=== PATIENT | female | born 1950 | race Caucasian/White ===

== ENCOUNTER 2018-03-05 11:59 | Emergency (ER) | payer MEDICARE, OTHER ==
[~2018-03-05] VITALS: Ht 160 cm; Wt 53.0 kg
[~2018-03-05 11:59] MED LIST: ASPI-1159 PO; BENZ1TAB7 PO; DIVA500T51 PO; QUET300T2 PO; SIMV10TA6 PO; TRAZ-132 PO; ZOLP10TA6 PO
[2018-03-05] MEDS ORDERED: KETOROLAC 30MG/ML VIAL IV ONE (13:45)
[2018-03-05 14:19] LABS: CLARITY URINE TURBID (CLEAR); COLOR URINE YELLOW (YELLOW); KETONES URINE TRACE (NEGATIVE); LEUKOCYTE ESTERASE URINE 2+ (NEGATIVE); NITRITE URINE POSITIVE (NEGATIVE); OCCULT BLOOD URINE 1+ (NEGATIVE); PH URINE 6.5 (4.5-8.0); PROTEIN URINE 1+ (NEGATIVE)
[2018-03-05 15:25] LABS: HEMATOCRIT. 35.3 % (36.0-48.0); HEMOGLOBIN. 12.1 g/dL (12.0-16.0); MEAN CORPUSCULAR HEMOGLOBIN 35.8 pg (28.0-32.0); MEAN CORPUSCULAR VOLUME 103.8 fL (81.0-99.0); MEAN PLATELET VOLUME 8.2 fl (7.4-10.4); PLATELET 132 x1000/uL (130-400); RED CELL DISTRIBUTION WIDTH 12.6 % (11.6-14.6)
[2018-03-05 15:28] LABS: CHLORIDE 103 mEq/L (98-107)
[2018-03-05 16:21] LABS: PLATELET ESTIMATE NORMAL
[2018-03-05] MEDS ORDERED: CEFTRIAXONE 1 G PREMIX 50 ML IV ONE (17:00)
[2018-03-05] MEDS ORDERED: LIDOCAINE HCL 1% 20ML VIAL (Pyxis) INJ INFIL ONE (17:45)
[2018-03-05] MEDS ORDERED: CEFTRIAXONE SODIUM 1 G/VIAL IM ONE (17:45)
[2018-03-05 18:17] VITALS: BP 121/32
== END 2018-03-05 18:17 | disposition home or self-care (01) ==
LOC: ER 13:32
DX: R60.0 Localized edema (principal); N39.0 Urinary tract infection, site not specified; F20.9 Schizophrenia, unspecified; G40.909 Epilepsy, unspecified, not intractable, without status epilepticus; I51.9 Heart disease, unspecified; I45.10 Unspecified right bundle-branch block; R62.50 Unspecified lack of expected normal physiological development in childhood; Z90.11 Acquired absence of right breast and nipple
CPT/HCPCS: 36415; 71045; 80053; 80165; 81003; 83880; 84484; 85025; 87077; 87086; 87186; 93005; 93970; 96372; 99285; J0696; J3490; Z7610

== ENCOUNTER 2018-12-30 09:09 | Emergency (ER) | payer MEDICARE, OTHER ==
[~2018-12-30] VITALS: Ht 157.5 cm; Wt 80.0 kg
[~2018-12-30 09:09] MED LIST changes: -TRAZ-132 PO; +TRAZ-213 PO
[2018-12-30 10:35] LABS: HEMATOCRIT. 38.7 % (36.0-48.0); LYMPHOCYTES % 33.8 % (20.0-50.0); MEAN CORPUSCULAR HEMOGLOBIN 32.5 pg (28.0-32.0); MEAN CORPUSCULAR VOLUME 96.8 fL (81.0-99.0); MEAN PLATELET VOLUME 7.9 fl (7.4-10.4); MONOCYTES % 10.8 % (2.0-8.0); NEUTROPHILS % 52.4 % (40.0-76.0); PLATELET 180 x1000/uL (130-400); RED CELL DISTRIBUTION WIDTH 12.8 % (11.6-14.6)
[2018-12-30 10:38] LABS: CHLORIDE 106 mEq/L (98-107)
[2018-12-30 10:41] LABS: ETHANOL BLOOD < 10 mg/dL
[2018-12-30 10:42] LABS: *AMPHETAMINES SCREEN URINE NEGATIVE (NEGATIVE); *BARBITURATES SCREEN URINE NEGATIVE (NEGATIVE); CANNABINOID URINE SCREEN NEGATIVE (NEGATIVE); OPIATES URINE SCREEN NEGATIVE (NEGATIVE); PHENCYCLIDINE URINE SCREEN NEGATIVE (NEGATIVE)
[2018-12-30 10:43] LABS: *BENZODIAZEPINES SCREEN URINE NEGATIVE (NEGATIVE); *COCAINE SCREEN URINE NEGATIVE (NEGATIVE); METHADONE URINE SCREEN NEGATIVE (NEGATIVE)
[2018-12-30 14:40] VITALS: BP 137/65
== END 2018-12-30 14:40 | disposition home or self-care (01) ==
LOC: ER 09:09
DX: Z51.89 Encounter for other specified aftercare (principal); R94.31 Abnormal electrocardiogram [ECG] [EKG]; F20.9 Schizophrenia, unspecified; R56.9 Unspecified convulsions; I51.9 Heart disease, unspecified
CPT/HCPCS: 36415; 80305; 80307; 80320; 80329; 93005; 99284; G0480

== ENCOUNTER 2019-07-01 13:20 | Emergency (ER) | payer MEDICARE, OTHER ==
[~2019-07-01] VITALS: Ht 152.4 cm; Wt 60.0 kg
[~2019-07-01 13:20] MED LIST changes: -ASPI-1159 PO; +ASPI-1393 PO
[2019-07-01 13:38] VITALS: BP 98/79
[2019-07-01] MEDS ORDERED: BACITRACIN ZINC OINT UDPKT TOP ONE (14:15)
== END 2019-07-01 15:39 | disposition home or self-care (01) ==
LOC: ER 13:20
DX: S91.204A Unspecified open wound of right lesser toe(s) with damage to nail, initial encounter (principal); F20.9 Schizophrenia, unspecified; I51.9 Heart disease, unspecified; Z85.3 Personal history of malignant neoplasm of breast; Z90.10 Acquired absence of unspecified breast and nipple; Z91.81 History of falling; W22.8XXA Striking against or struck by other objects, initial encounter; Y93.E1 Activity, personal bathing and showering; Y92.012 Bathroom of single-family (private) house as the place of occurrence of the external cause
CPT/HCPCS: 73630; 99283

== ENCOUNTER 2019-09-08 15:51 | Emergency (ER) | payer MEDICARE, OTHER ==
[~2019-09-08] VITALS: Ht 160 cm; Wt 75.0 kg
[2019-09-08 23:49] LABS: CLARITY URINE TURBID (CLEAR); COLOR URINE RED (YELLOW); KETONES URINE NEGATIVE (NEGATIVE); LEUKOCYTE ESTERASE URINE 2+ (NEGATIVE); NITRITE URINE NEGATIVE (NEGATIVE); OCCULT BLOOD URINE 3+ (NEGATIVE); PROTEIN URINE 2+ (NEGATIVE); SPECIFIC GRAVITY URINE 1.019 (1.005-1.030); UROBILINOGEN URINE 0.2 E.U./dL (0.2-1.0)
[2019-09-08 23:55] LABS: CHLORIDE 98 mEq/L (98-107)
[2019-09-09 02:45] VITALS: BP 112/55
== END 2019-09-09 03:11 | disposition home or self-care (01) ==
LOC: ER 15:51
DX: R31.9 Hematuria, unspecified (principal); F20.9 Schizophrenia, unspecified; F79 Unspecified intellectual disabilities; Z79.82 Long term (current) use of aspirin; Z86.718 Personal history of other venous thrombosis and embolism; Z98.890 Other specified postprocedural states
CPT/HCPCS: 36415; 80048; 81003; 99283

== ENCOUNTER 2019-09-11 22:02 | Emergency (ER) | payer MEDICARE, OTHER ==
[~2019-09-11] VITALS: Ht 160 cm; Wt 79.0 kg
[2019-09-12] MEDS ORDERED: SODIUM CHLORIDE 0.9% 1,000 ML IV ONE (00:58)
[2019-09-12 01:33] LABS: BASOPHILS % 0.7 % (0.0-2.0); HEMATOCRIT. 35.9 % (36.0-48.0); HEMOGLOBIN. 12.2 g/dL (12.0-16.0); LYMPHOCYTES % 39.2 % (20.0-50.0); MEAN CORPUSCULAR HEMOGLOBIN 31.5 pg (28.0-32.0); MEAN CORPUSCULAR VOLUME 92.5 fL (81.0-99.0); MEAN PLATELET VOLUME 7.7 fl (7.4-10.4); MONOCYTES % 10.3 % (2.0-8.0); NEUTROPHILS % 47.8 % (40.0-76.0); PLATELET 204 x1000/uL (130-400); RED BLOOD CELL COUNT 3.88 mill/uL (4.2-5.4); RED CELL DISTRIBUTION WIDTH 15.3 % (11.6-14.6)
[2019-09-12 01:41] LABS: INR 1.2
[2019-09-12 01:46] LABS: CHLORIDE 106 mEq/L (98-107)
[2019-09-12 02:08] LABS: CLARITY URINE TURBID (CLEAR); COLOR URINE RED (YELLOW); KETONES URINE NEGATIVE (NEGATIVE); LEUKOCYTE ESTERASE URINE 2+ (NEGATIVE); NITRITE URINE POSITIVE (NEGATIVE); OCCULT BLOOD URINE 2+ (NEGATIVE); PROTEIN URINE 2+ (NEGATIVE); UROBILINOGEN URINE 0.2 E.U./dL (0.2-1.0)
[2019-09-12] MEDS ORDERED: POTASSIUM CHLORIDE 20MEQ TABLET SR PO ONE (02:15)
[2019-09-12] MEDS ORDERED: IOHEXOL-300 100 ML BOTTLE ONE (02:38)
[2019-09-12 05:09] VITALS: BP 125/78
== END 2019-09-12 05:10 | disposition home or self-care (01) ==
LOC: ER 22:21
DX: N28.9 Disorder of kidney and ureter, unspecified (principal); E87.6 Hypokalemia; R31.9 Hematuria, unspecified; J45.909 Unspecified asthma, uncomplicated; I10 Essential (primary) hypertension; E78.00 Pure hypercholesterolemia, unspecified; Z79.899 Other long term (current) drug therapy; Z79.82 Long term (current) use of aspirin
CPT/HCPCS: 36415; 74177; 80053; 81003; 85025; 85610; 99284; A4217; J7030; Q9967; Z7610

== ENCOUNTER 2019-09-12 08:45 | Emergency (ER) | payer MEDICARE, OTHER ==
[~2019-09-12] VITALS: Ht 160 cm; Wt 78.0 kg
[2019-09-12] MEDS ORDERED: SODIUM CHLORIDE 0.9% 1,000 ML IV ONE (09:05)
[2019-09-12] MEDS ORDERED: DIATR MEGLU/DIATRIZOATE SOLN 30ML ONE (09:54)
[2019-09-12 10:29] LABS: EOSINOPHILS % 0.6 % (0.0-5.0); HEMATOCRIT. 38.4 % (36.0-48.0); HEMOGLOBIN. 12.9 g/dL (12.0-16.0); LYMPHOCYTES % 27.8 % (20.0-50.0); MEAN CORPUSCULAR HEMOGLOBIN 31.1 pg (28.0-32.0); MEAN CORPUSCULAR VOLUME 92.3 fL (81.0-99.0); MEAN PLATELET VOLUME 7.9 fl (7.4-10.4); NEUTROPHILS % 61.6 % (40.0-76.0); PLATELET 221 x1000/uL (130-400); RED BLOOD CELL COUNT 4.16 mill/uL (4.2-5.4); RED CELL DISTRIBUTION WIDTH 15.3 % (11.6-14.6)
[2019-09-12 10:33] LABS: CHLORIDE 107 mEq/L (98-107)
[2019-09-12 10:41] LABS: INR 1.3; PROTHROMBIN TIME 13.4 sec (9.6-11.0)
[2019-09-12 13:00] VITALS: BP 111/70
[2019-09-12] MEDS ORDERED: IOHEXOL-300 100 ML BOTTLE ONE (15:17)
== END 2019-09-12 14:24 ==
LOC: ER 08:59
DX: F20.9 Schizophrenia, unspecified (principal); I10 Essential (primary) hypertension; J45.909 Unspecified asthma, uncomplicated; E78.00 Pure hypercholesterolemia, unspecified; Z79.82 Long term (current) use of aspirin; Z88.6 Allergy status to analgesic agent
CPT/HCPCS: 36415; 71045; 74177; 80053; 83690; 85025; 85610; 99284; J7030; Q9963; Q9967

== ENCOUNTER 2020-07-09 11:09 | Emergency (ER) | payer MEDICARE, OTHER ==
[~2020-07-09] VITALS: Ht 157.5 cm; Wt 86.0 kg
[~2020-07-09 11:09] MED LIST changes: -ASPI-1393 PO; +ASPI-1497 PO; -SIMV10TA6 PO; +SIMV10TA97 PO; -TRAZ-213 PO; +TRAZ-252 PO
[2020-07-09] MEDS ORDERED: ACETAMINOPHEN 325MG TABLET PO ONE (11:45)
[2020-07-09] MEDS ORDERED: LORAZEPAM 2MG/ML CPJ IM ONE (12:30)
[2020-07-09 14:06] VITALS: BP 131/80
== END 2020-07-09 14:05 | disposition home or self-care (01) ==
LOC: ER 11:54
DX: S00.83XA Contusion of other part of head, initial encounter (principal); W22.8XXA Striking against or struck by other objects, initial encounter; Y93.89 Activity, other specified; Y92.89 Other specified places as the place of occurrence of the external cause; Y99.8 Other external cause status; I10 Essential (primary) hypertension; F20.9 Schizophrenia, unspecified; Z98.890 Other specified postprocedural states; Z79.899 Other long term (current) drug therapy
CPT/HCPCS: 70450; 96372; 99284; J2060

== ENCOUNTER 2021-06-14 11:42 | Emergency (ER) | payer MEDICARE, OTHER ==
[~2021-06-14] VITALS: Ht 170.2 cm; Wt 77.0 kg
[2021-06-14 13:04] LABS: BASOPHILS % 0.3 % (0.0-2.0); HEMOGLOBIN. 14.1 g/dL (12.0-16.0); LYMPHOCYTES % 8.7 % (20.0-50.0); MEAN CORPUSCULAR VOLUME 93.1 fL (81.0-99.0); MONOCYTES % 6.7 % (2.0-8.0); NEUTROPHILS % 84.3 % (40.0-76.0); PLATELET 183 x1000/uL (130-400); RED CELL DISTRIBUTION WIDTH 13.7 % (11.6-14.6)
[2021-06-14 13:06] LABS: CHLORIDE 97 mEq/L (98-107)
[2021-06-14] MEDS ORDERED: ACETAMINOPHEN 650MG/20.3ML UDC PO NR (14:30)
[2021-06-14 15:05] LABS: CLARITY URINE CLOUDY (CLEAR); COLOR URINE YELLOW (YELLOW); KETONES URINE NEGATIVE (NEGATIVE); LEUKOCYTE ESTERASE URINE 3+ (NEGATIVE); NITRITE URINE POSITIVE (NEGATIVE); OCCULT BLOOD URINE 2+ (NEGATIVE); PH URINE 6.5 (4.5-8.0); PROTEIN URINE NEGATIVE (NEGATIVE); SPECIFIC GRAVITY URINE 1.016 (1.005-1.030); UROBILINOGEN URINE 0.2 E.U./dL (0.2-1.0)
[2021-06-14] MEDS ORDERED: LEVOFLOXACIN 250MG PREMIX 50 ML IV ONE (15:30)
[2021-06-14] MEDS ORDERED: AMOX-424 MT (15:52)
[2021-06-14 16:15] VITALS: BP 132/65
== END 2021-06-14 16:25 | disposition home or self-care (01) ==
LOC: ER 11:42
DX: N39.0 Urinary tract infection, site not specified (principal); I10 Essential (primary) hypertension; F20.9 Schizophrenia, unspecified; F79 Unspecified intellectual disabilities; R90.82 White matter disease, unspecified
CPT/HCPCS: 36415; 70450; 71045; 80053; 80165; 81003; 85025; 87077; 87086; 87186; 96365; 99285; J1956

== ENCOUNTER 2025-02-25 10:35 | Emergency (ER) | payer MEDICARE, MEDICAID ==
[~2025-02-25] VITALS: Ht 157.5 cm; Wt 62.0 kg
[~2025-02-25 10:35] MED LIST changes: -BENZ1TAB7 PO; +CARI4.5C PO; +DIVA250T45 PO; +ESTR42.510 VG; +HYDR25TA PO; +METH1TAB33 PO; +NITR100C11 PO; +OMEP20CA14 PO; -QUET300T2 PO; +QUET400T12 PO; -TRAZ-252 PO; -ZOLP10TA6 PO
[2025-02-25 10:38] VITALS: O2SAT 98
[2025-02-25 11:20] LABS: BASOPHILS % 0.8 % (0.0-2.0); EOSINOPHILS % 6.7 % (0.0-5.0); HEMOGLOBIN. 12.3 g/dL (12.0-16.0); LYMPHOCYTES % 46.9 % (20.0-50.0); MEAN CORPUSCULAR HEMOGLOBIN 32.3 pg (28.0-32.0); MEAN CORPUSCULAR HGB CONC 34.2 g/dL (31.0-37.0); MEAN CORPUSCULAR VOLUME 94.4 fL (81.0-99.0); MEAN PLATELET VOLUME 7.8 fl (7.4-10.4); MONOCYTES % 9.1 % (2.0-8.0); NEUTROPHILS % 36.5 % (40.0-76.0); PLATELET 276 x1000/uL (130-400); RED BLOOD CELL COUNT 3.82 mill/uL (4.2-5.4); RED CELL DISTRIBUTION WIDTH 14.4 % (11.6-14.6); WHITE BLOOD COUNT 5.8 x1000/uL (4.5-11.0)
[2025-02-25 11:28] LABS: INR 0.9; PROTHROMBIN TIME 10.2 sec (9.6-11.0)
[2025-02-25 11:37] LABS: TROPONIN I HIGH SENSITIVITY 6 ng/L (3.0-34)
[2025-02-25 12:08] LABS: CLARITY URINE CLEAR (CLEAR); COLOR URINE YELLOW (YELLOW); GLUCOSE URINE NEGATIVE (NEGATIVE); KETONES URINE TRACE (NEGATIVE); LEUKOCYTE ESTERASE URINE 1+ (NEGATIVE); NITRITE URINE POSITIVE (NEGATIVE); OCCULT BLOOD URINE NEGATIVE (NEGATIVE); PH URINE 6.5 (4.5-8.0); PROTEIN URINE NEGATIVE (NEGATIVE); SPECIFIC GRAVITY URINE 1.015 (1.005-1.030); UROBILINOGEN URINE 0.2 E.U./dL (0.2-1.0)
[2025-02-25 12:51] LABS: SQUAMOUS EPITHELIAL CELL URINE 2+ /lpf (RARE/1+)
[2025-02-25 12:53] LABS: RBC URINE 0-2 /hpf (0-2); WBC URINE 50-100 /hpf (0-2)
[2025-02-25 12:54] LABS: BACTERIA URINE 3+
[2025-02-25 13:05] LABS: CHLORIDE 98 mEq/L (98-107); POTASSIUM 4.1 mEq/L (3.5-5.1); SODIUM 134 mEq/L (136-145)
[2025-02-25 13:06] LABS: CARBON DIOXIDE 22 mEq/L (21-32)
[2025-02-25 13:11] LABS: CREATININE 1.1 mg/dL (0.6-1.0); GLUCOSE 160 mg/dL (70-105); UREA NITROGEN BLOOD 18 mg/dL (9-23)
[2025-02-25] MEDS ORDERED: CEPH500T MT (13:43)
[2025-02-25] MEDS: CEFTRIAXONE SODIUM 1G VIAL IM NR (14:07)
[2025-02-25 14:13] VITALS: BP 132/103; PULSE 75; RESP 18; TEMP 37; O2SAT 98
== END 2025-02-25 14:37 | disposition home or self-care (01) ==
LOC: ER 10:35
DX: N39.0 Urinary tract infection, site not specified (principal); I10 Essential (primary) hypertension; E78.00 Pure hypercholesterolemia, unspecified; Z79.82 Long term (current) use of aspirin; Z79.899 Other long term (current) drug therapy; Z86.59 Personal history of other mental and behavioral disorders; Z90.10 Acquired absence of unspecified breast and nipple
CPT/HCPCS: 99285; 70450; 71045; 80048; 81003; 83880; 85025; 85610; 87086; 84484; 36415; 93005; 96372; J0696

== ENCOUNTER 2025-03-11 09:13 | Emergency (ER) | payer MEDICARE, MEDICAID ==
[~2025-03-11] VITALS: Ht 160 cm; Wt 80.0 kg
[~2025-03-11 09:13] MED LIST changes: +CEPH500T MT
[2025-03-11 09:23] VITALS: O2SAT 97
[2025-03-11 10:36] LABS: BASOPHILS % 0.7 % (0.0-2.0); EOSINOPHILS % 1.5 % (0.0-5.0); HEMATOCRIT. 40.6 % (36.0-48.0); HEMOGLOBIN. 13.4 g/dL (12.0-16.0); LYMPHOCYTES % 29.9 % (20.0-50.0); MEAN CORPUSCULAR HEMOGLOBIN 30.9 pg (28.0-32.0); MEAN CORPUSCULAR VOLUME 93.9 fL (81.0-99.0); MEAN PLATELET VOLUME 8.9 fl (7.4-10.4); MONOCYTES % 7.7 % (2.0-8.0); NEUTROPHILS % 60.2 % (40.0-76.0); PLATELET 193 x1000/uL (130-400); RED BLOOD CELL COUNT 4.33 mill/uL (4.2-5.4); WHITE BLOOD COUNT 4.5 x1000/uL (4.5-11.0)
[2025-03-11 10:39] LABS: CHLORIDE 103 mEq/L (98-107); POTASSIUM 3.6 mEq/L (3.5-5.1); SODIUM 140 mEq/L (136-145)
[2025-03-11 10:40] LABS: CARBON DIOXIDE 30 mEq/L (21-32)
[2025-03-11 10:41] LABS: CALCIUM 8.8 mg/dL (8.7-10.4)
[2025-03-11 10:45] LABS: CREATININE 0.7 mg/dL (0.6-1.0); GLUCOSE 104 mg/dL (70-105); PROTHROMBIN TIME 10.8 sec (9.6-11.0)
[2025-03-11 10:46] LABS: UREA NITROGEN BLOOD 24 mg/dL (9-23)
[2025-03-11] MEDS ORDERED: P50 MT (14:59)
[2025-03-11] MEDS ORDERED: LEVO750T68 MT (14:59)
[2025-03-11 15:55] VITALS: BP 163/82; PULSE 86; RESP 17; TEMP 36.6; O2SAT 98
[2025-03-11] MEDS: PREDNISONE 20MG TABLET PO SCH (15:59)
[2025-03-11] MEDS: LEVOFLOXACIN 250MG TABLET PO SCH (16:18)
== END 2025-03-11 15:00 | disposition home or self-care (01) ==
LOC: ER 09:13
DX: J18.9 Pneumonia, unspecified organism (principal); I10 Essential (primary) hypertension; E78.00 Pure hypercholesterolemia, unspecified; J45.909 Unspecified asthma, uncomplicated; F41.9 Anxiety disorder, unspecified; Z79.82 Long term (current) use of aspirin; Z79.899 Other long term (current) drug therapy; Z87.440 Personal history of urinary (tract) infections; Z86.59 Personal history of other mental and behavioral disorders
CPT/HCPCS: 99284; 71045; 80048; 85025; 85610; 36415; J7512; A4565; A4606